=== PATIENT | male | born 1965 | race Caucasian/White ===

== ENCOUNTER 2017-05-24 02:42 | Inpatient (IN) | payer OTHER ==
[~2017-05-24] VITALS: Ht 170.2 cm; Wt 91.2 kg
[~2017-05-24 02:42] MED LIST: ACYC500V PO; ESOM40SU PO; SERT50TA5 PO
[2017-05-24] MEDS ORDERED: MORPHINE SULFATE 4 MG/ML, 1ML ONE ×2 (03:20→05:10)
[2017-05-24] MEDS ORDERED: KETOROLAC 30 MG/1 ML ONE (03:20)
[2017-05-24] MEDS ORDERED: ONDANSETRON 2MG/ML, 2ML ONE ×2 (03:20→05:10)
[2017-05-24] MEDS: MORPHINE SULFATE 4 MG/ML, 1ML IVPush PRN ×2 (03:26→05:13)
[2017-05-24] MEDS ORDERED: SODIUM CHLORIDE 0.9% 1,000ML IVBOLUS ONE (03:30)
[2017-05-24] MEDS ORDERED: KETOROLAC 30 MG/1 ML IVPush ONE (03:30)
[2017-05-24 03:39] LABS: BASOPHILS # (AUTO) 0.05 x10^3/uL (0-0.1); BASOPHILS % (AUTO) 1 % (0-1); EOSINOPHILS # (AUTO) 0.07 x10^3/uL (0-0.4); EOSINOPHILS % (AUTO) 1 % (1-7); LYMPHOCYTES # (AUTO) 1.28 x10^3/uL (1-3.4); LYMPHOCYTES % (AUTO) 13 % (22-44); MD NO; MEAN CORPUSCULAR HGB CONC 33.6 g/dL (33.2-36.2); MEAN CORPUSCULAR VOLUME 86.3 fL (81-97); MEAN PLATELET VOLUME 7.9 fL (7.4-10.4); MONOCYTES # (AUTO) 0.45 x10^3/uL (0.2-0.8); MONOCYTES % (AUTO) 5 % (2-9); NEUTROPHILS # (AUTO) 8.25 x10^3/uL (1.8-6.8); NEUTROPHILS % (AUTO) 82 % (42-75); PLATELET COUNT 287 x10^3/uL (130-400); RED BLOOD COUNT 5.07 x10^6/uL (4.38-5.82); RED CELL DISTRIBUTION WIDTH 13.9 % (9.4-14.8)
[2017-05-24 03:52] LABS: ALANINE AMINOTRANSFERASE 34 U/L (12-78); ALBUMIN 4.5 g/dL (3.4-5.0); ANION GAP 14 mmol/L (5-15); CALCIUM 9.4 mg/dL (8.5-10.1); CHLORIDE 105 mmol/L (98-107); CREATININE 1.57 mg/dL (0.7-1.3)
[2017-05-24 03:54] LABS: ALKALINE PHOSPHATASE 58 U/L (45-117); BILIRUBIN,TOTAL 0.9 mg/dL (0.2-1.0); TOTAL PROTEIN 7.9 g/dL (6.4-8.2)
[2017-05-24] MEDS ORDERED: ONDANSETRON 2MG/ML, 2ML IVPush ONE ×2 (04:00→05:30)
[2017-05-24 06:08] LABS: MICROSCOPIC INDICATED
[2017-05-24 06:14] LABS: INTERNATIONAL NORMALIZED RATIO 0.95 (0.93-1.1); PROTHROMBIN TIME 9.9 Seconds (9.6-11.5)
[2017-05-24 06:17] LABS: CULTURE INDICATED? NO
[2017-05-24] MEDS ORDERED: ONDANSETRON 2MG/ML, 2ML IVPush PRN ×2 (07:00→08:00)
[2017-05-24] MEDS ORDERED: MORPHINE SULFATE 4 MG/ML, 1ML IVPush PRN (07:00)
[2017-05-24] MEDS ORDERED: ENALAPRILAT 1.25 MG/ML, 2ML IVPush PRN (08:00)
[2017-05-24] MEDS ORDERED: ACETAMINOPHEN 325 MG TABLET PO PRN (08:00)
[2017-05-24] MEDS ORDERED: hydrALAzine 20 MG/ML, 1ML IVPush PRN (08:00)
[2017-05-24] MEDS ORDERED: POLYETHYLENE GLYCOL 17 GM PACKET PO PRN (08:00)
[2017-05-24] MEDS ORDERED: DOCUSATE 100 MG CAPSULE PO PRN (08:00)
[2017-05-24] MEDS ORDERED: BISACODYL 10 MG SUPP PR PRN (08:00)
[2017-05-24] MEDS ORDERED: morphine SULFATE 10 MG/ML, 1ML IVPush PRN (08:00)
[2017-05-24] MEDS: ESOMEPRAZOLE MAGNESIUM 40 MG PO SCH (09:00)
[2017-05-24] MEDS ORDERED: SERTRALINE 50MG TABLET PO SCH (09:00)
[2017-05-24 12:54] VITALS: BP 122/67
[2017-05-24] MEDS: HYDROcodone/APAP 5/325 TABLET PO PRN (16:30)
[2017-05-24] MEDS: LACTATED RINGERS 1,000 ML IV SCH (17:22)
[2017-05-24 19:47] VITALS: BP 130/67
[2017-05-24] MEDS: SERTRALINE 50MG TABLET PO SCH (20:17)
[2017-05-25] MEDS: LACTATED RINGERS 1,000 ML IV SCH (00:05)
[2017-05-25 03:25] VITALS: BP 109/60
[2017-05-25 03:36] LABS: ALBUMIN 3.2 g/dL (3.4-5.0); ANION GAP 7 mmol/L (5-15); CALCIUM 8.2 mg/dL (8.5-10.1); CHLORIDE 108 mmol/L (98-107)
[2017-05-25 03:39] LABS: ALANINE AMINOTRANSFERASE 23 U/L (12-78); ALKALINE PHOSPHATASE 42 U/L (45-117); BILIRUBIN,TOTAL 0.7 mg/dL (0.2-1.0); CREATININE 1.46 mg/dL (0.7-1.3); TOTAL PROTEIN 6.3 g/dL (6.4-8.2)
[2017-05-25 07:47] VITALS: BP 131/66
[2017-05-25] MEDS ORDERED: LACTATED RINGERS 1,000 ML IV SCH (08:00)
[2017-05-25] MEDS: ESOMEPRAZOLE MAGNESIUM 40 MG PO SCH (09:00)
[2017-05-25 12:28] LABS: BASOPHILS # (AUTO) 0.08 x10^3/uL (0-0.1); BASOPHILS % (AUTO) 1 % (0-1); EOSINOPHILS # (AUTO) 0.05 x10^3/uL (0-0.4); EOSINOPHILS % (AUTO) 1 % (1-7); LYMPHOCYTES % (AUTO) 17 % (22-44); MD NO; MEAN CORPUSCULAR HEMOGLOBIN 29.8 pg (27.5-34.5); MEAN CORPUSCULAR HGB CONC 34.2 g/dL (33.2-36.2); MEAN CORPUSCULAR VOLUME 87.1 fL (81-97); MEAN PLATELET VOLUME 7.8 fL (7.4-10.4); MONOCYTES # (AUTO) 0.69 x10^3/uL (0.2-0.8); MONOCYTES % (AUTO) 9 % (2-9); NEUTROPHILS # (AUTO) 5.34 x10^3/uL (1.8-6.8); NEUTROPHILS % (AUTO) 72 % (42-75); PLATELET COUNT 203 x10^3/uL (130-400); RED BLOOD COUNT 4.03 x10^6/uL (4.38-5.82); RED CELL DISTRIBUTION WIDTH 13.9 % (9.4-14.8)
[2017-05-25] MEDS: HYDROcodone/APAP 5/325 TABLET PO PRN ×2 (13:39→21:23)
[2017-05-25 15:14] VITALS: BP 110/63
[2017-05-25 19:20] VITALS: BP 129/67
[2017-05-25] MEDS: SERTRALINE 50MG TABLET PO SCH (21:22)
[2017-05-26 02:00] VITALS: BP 112/64
[2017-05-26 04:26] LABS: BASOPHILS # (AUTO) 0.03 x10^3/uL (0-0.1); BASOPHILS % (AUTO) 1 % (0-1); EOSINOPHILS # (AUTO) 0.11 x10^3/uL (0-0.4); EOSINOPHILS % (AUTO) 2 % (1-7); LYMPHOCYTES # (AUTO) 1.74 x10^3/uL (1-3.4); LYMPHOCYTES % (AUTO) 26 % (22-44); MD NO; MEAN CORPUSCULAR HEMOGLOBIN 29.3 pg (27.5-34.5); MEAN CORPUSCULAR HGB CONC 33.8 g/dL (33.2-36.2); MEAN CORPUSCULAR VOLUME 86.6 fL (81-97); MEAN PLATELET VOLUME 7.7 fL (7.4-10.4); MONOCYTES # (AUTO) 0.59 x10^3/uL (0.2-0.8); MONOCYTES % (AUTO) 9 % (2-9); NEUTROPHILS # (AUTO) 4.24 x10^3/uL (1.8-6.8); NEUTROPHILS % (AUTO) 63 % (42-75); PLATELET COUNT 196 x10^3/uL (130-400); RED BLOOD COUNT 3.82 x10^6/uL (4.38-5.82)
[2017-05-26 04:45] LABS: ALBUMIN 3.1 g/dL (3.4-5.0); ANION GAP 6 mmol/L (5-15); CALCIUM 8.4 mg/dL (8.5-10.1); CHLORIDE 109 mmol/L (98-107)
[2017-05-26 04:49] LABS: ALANINE AMINOTRANSFERASE 22 U/L (12-78); ALKALINE PHOSPHATASE 42 U/L (45-117); BILIRUBIN,TOTAL 0.8 mg/dL (0.2-1.0); TOTAL PROTEIN 6.3 g/dL (6.4-8.2)
[2017-05-26] MEDS ORDERED: OMNIPAQUE 350 MG/ML, 100ML BOTTLE ONE (08:15)
[2017-05-26 08:42] VITALS: BP 152/83
[2017-05-26] MEDS: ESOMEPRAZOLE MAGNESIUM 40 MG PO SCH (09:00)
[2017-05-26] MEDS: HYDROcodone/APAP 5/325 TABLET PO PRN (12:06)
[2017-05-26 13:31] VITALS: BP 143/73
[2017-05-26 19:49] VITALS: BP 145/83
[2017-05-26] MEDS: SERTRALINE 50MG TABLET PO SCH (21:34)
[2017-05-27 03:45] VITALS: BP 114/67
[2017-05-27 07:55] VITALS: BP 145/88
[2017-05-27] MEDS: ESOMEPRAZOLE MAGNESIUM 40 MG PO SCH (09:00)
[2017-05-27] MEDS ORDERED: ACET325T14 PO (10:32)
== END 2017-05-27 13:00 | disposition home or self-care (01) | DRG 699 ==
LOC: ED 05:09 → EDIP 06:51 → 3NW 07:41 → DCLOUNGE 05-27 12:49
PROVIDERS: ADMIT Internal Medicine; ATTEND Internal Medicine
DX: S37.012A Minor contusion of left kidney, initial encounter (principal); N17.9 Acute kidney failure, unspecified; F32.9 Major depressive disorder, single episode, unspecified; W18.39XA Other fall on same level, initial encounter; Y93.23 Activity, snow (alpine) (downhill) skiing, snowboarding, sledding, tobogganing and snow tubing; Y92.89 Other specified places as the place of occurrence of the external cause; Y99.8 Other external cause status; F41.9 Anxiety disorder, unspecified; K21.9 Gastro-esophageal reflux disease without esophagitis; Z80.1 Family history of malignant neoplasm of trachea, bronchus and lung; Z82.5 Family history of asthma and other chronic lower respiratory diseases
CPT/HCPCS: 36415; 74174; 74176; 80053; 81001; 83690; 85014; 85018; 85025; 85610; 96361; 96374; 96375; 96376; J1885; J2405; Q9967; J7030; J7120

== ENCOUNTER → 2017-06-11 | Outpatient (CLI) | payer OTHER ==
[~2017-06-11] MED LIST changes: +ACET325T14 PO
[2017-06-11 12:11] LABS: ALANINE AMINOTRANSFERASE 17 U/L (12-78); ALBUMIN 3.8 g/dL (3.4-5.0); ANION GAP 6 mmol/L (5-15); CALCIUM 8.9 mg/dL (8.5-10.1); CHLORIDE 106 mmol/L (98-107)
[2017-06-11 12:13] LABS: ALKALINE PHOSPHATASE 79 U/L (45-117); BILIRUBIN,TOTAL 0.7 mg/dL (0.2-1.0)
== END | disposition home or self-care (01) ==
LOC: LAB 11:29
PROVIDERS: ATTEND Student in an Organized Health Care Education/Training Program
DX: S37.019A Minor contusion of unspecified kidney, initial encounter (principal); X58.XXXA Exposure to other specified factors, initial encounter; Y93.89 Activity, other specified; Y92.89 Other specified places as the place of occurrence of the external cause; Y99.8 Other external cause status
CPT/HCPCS: 36415; 80053

== ENCOUNTER → 2017-06-21 | Outpatient (CLI) | payer OTHER ==
[~2017-06-21] MED LIST changes: +GADOBUTROL 10 MMOL/10 ML VIAL ONE
== END ==
LOC: CFH 09:12
PROVIDERS: ATTEND Student in an Organized Health Care Education/Training Program
DX: S37.012A Minor contusion of left kidney, initial encounter (principal)
CPT/HCPCS: 74183; A9585

== ENCOUNTER → 2018-06-30 | Outpatient (CLI) | payer OTHER ==
[~2018-06-30] MED LIST changes: +FUROSEMIDE 20 MG/2 ML ONE; -GADOBUTROL 10 MMOL/10 ML VIAL ONE; +SERT50TA28 PO; -SERT50TA5 PO
== END | disposition home or self-care (01) ==
LOC: PETCFH 09:13
PROVIDERS: ATTEND Student in an Organized Health Care Education/Training Program
DX: S37.019D Minor contusion of unspecified kidney, subsequent encounter (principal); X58.XXXD Exposure to other specified factors, subsequent encounter
CPT/HCPCS: 78708; A9562; J1940

== ENCOUNTER 2020-06-23 14:21 | Inpatient (IN) | payer OTHER ==
[~2020-06-23] VITALS: Ht 170.2 cm; Wt 90.3 kg
[~2020-06-23 14:21] MED LIST changes: -FUROSEMIDE 20 MG/2 ML ONE
[2020-06-23] MEDS ORDERED: SERT-238 PO (14:34)
[2020-06-23] MEDS ORDERED: OMEP20CA20 PO (14:34)
--- NOTE | 2020-06-23 14:34 | NUR ---
DR MUÑOZ BS FOR EXAM. PT ABLE TO SPEAK IN COMPLETE SENTENCES.
--- NOTE | 2020-06-23 14:41 | NUR ---
O2 SAT DECREASED TO 88% AFTER WALKING AROUND [employer]. O2 APPLIED AT 2LNC; WILL TITRATE PRN.
[2020-06-23] MEDS ORDERED: DEXAMETHASONE 4 MG/ML, 5ML ONE (14:47)
[2020-06-23] MEDS ORDERED: DEXAMETHASONE 4 MG/ML, 1ML IV ONE (15:00)
--- NOTE | 2020-06-23 15:10 | NUR ---
report from skylar juarez
--- NOTE | 2020-06-23 15:10 | NUR ---
PT REPORT TO LILY LANDIN. PT CARE TRANSFERRED.
--- NOTE | 2020-06-23 15:18 | NUR ---
DECADRON 10MG DOSE CONFIRMED W/ LAW; MEDICATION GIVEN. IV SITE PATENT. SIDE RAIL UP X1, CALL LIGHT W/IN REACH.
[2020-06-23 15:21] LABS: PLATELET (DIC) 208 x10^3/uL (130-400)
[2020-06-23 15:23] LABS: BASOPHILS % (AUTO) 0 % (0-1); EOSINOPHILS % (AUTO) 0 % (1-7); LYMPHOCYTES % (AUTO) 11 % (22-44); MEAN CORPUSCULAR HEMOGLOBIN 29.1 pg (27.5-34.5); MEAN CORPUSCULAR HGB CONC 34.4 g/dL (33.2-36.2); MONOCYTES % (AUTO) 8 % (2-9); NEUTROPHILS % (AUTO) 81 % (42-75); PLATELET COUNT 219 x10^3/uL (130-400); RED BLOOD COUNT 5.17 x10^6/uL (4.38-5.82); RED CELL DISTRIBUTION WIDTH 13.2 % (9.4-14.8)
[2020-06-23 15:29] LABS: MD NO
[2020-06-23] MEDS ORDERED: CEFTRIAXONE PMX 1GM/50ML 50 ML IVPB ONE (15:30)
[2020-06-23] MEDS ORDERED: DOXYCYCLINE 100MG TABLET PO ONE (15:30)
[2020-06-23 15:33] LABS: ALANINE AMINOTRANSFERASE 59 U/L (12-78); ALBUMIN 3.3 g/dL (3.4-5.0); ANION GAP 6 mmol/L (5-15); CALCIUM 8.4 mg/dL (8.5-10.1); CHLORIDE 99 mmol/L (98-107); CREATININE 1.09 mg/dL (0.7-1.3)
[2020-06-23] MEDS ORDERED: DOXYCYCLINE 100MG TABLET ONE (15:37)
[2020-06-23] MEDS ORDERED: CEFTRIAXONE PMX 1GM/50ML 50 ML ONE (15:37)
[2020-06-23 15:40] LABS: ALKALINE PHOSPHATASE 77 U/L (45-117); BILIRUBIN,TOTAL 0.6 mg/dL (0.2-1.0); D-DIMER (DIC) 0.47 ug/mlFEU (0.00-0.52); PROTIME 11.2 Seconds (9.6-11.5); PTT 37 Seconds (25-31); TOTAL PROTEIN 7.8 g/dL (6.4-8.2)
[2020-06-23 15:41] LABS: FIBRINOGEN > 713 mg/dL (200-340)
--- NOTE | 2020-06-23 16:49 | NUR ---
report given to linda juarez
[2020-06-23] MEDS ORDERED: ONDANSETRON 2MG/ML, 2ML IVPush PRN (17:00)
[2020-06-23] MEDS ORDERED: hydrALAzine 20 MG/ML, 1ML IVPush PRN (17:00)
[2020-06-23] MEDS ORDERED: ENALAPRILAT 1.25 MG/ML, 2ML IVPush PRN (17:00)
[2020-06-23] MEDS ORDERED: BACLOFEN 10 MG TABLET PO PRN (17:00)
[2020-06-23] MEDS ORDERED: GUAIFENESIN/DM 200-20MG, 10ML UDC PO PRN (17:00)
[2020-06-23] MEDS ORDERED: ENOXAPARIN 40 MG/0.4 ML SQ SCH (17:00)
[2020-06-23] MEDS ORDERED: POTASSIUM CHLORIDE 20 MEQ, MAGNESIUM SULFATE 2 GM, THIAMINE 200 MG, MVI ADULT 10 ML, FO... IV ONE (17:00)
[2020-06-23] MEDS ORDERED: KETOROLAC 30 MG/1 ML IV PRN (17:00)
[2020-06-23] MEDS ORDERED: ACETAMINOPHEN 325 MG TABLET PO PRN (17:00)
[2020-06-23] MEDS ORDERED: BUTALB/APAP/CAFFEINE 50MG/325MG/40MG PO PRN ×2 (17:00)
[2020-06-23] MEDS ORDERED: ONDANSETRON ODT 4 MG PO PRN (17:00)
[2020-06-23 17:27] VITALS: BP 120/75
[2020-06-23] MEDS: IVERMECTIN 3 MG TAB PO SCH (17:47)
[2020-06-23 17:53] VITALS: BP 120/75
[2020-06-23] MEDS ORDERED: POTASSIUM CHLORIDE 20 MEQ, MAGNESIUM SULFATE 2 GM, THIAMINE 200 MG, FOLIC ACID 1 MG in ... IV ONE (18:00)
[2020-06-23] MEDS: ASCORBIC ACID 500 MG TABLET PO SCH (18:32)
[2020-06-23 18:56] VITALS: BP 125/76
[2020-06-23] MEDS: methylPREDNISolone SOD SUCC 125 MG/2 ML IV SCH (20:26)
[2020-06-23] MEDS: MELATONIN 5 MG TABLET PO SCH (20:26)
[2020-06-24 00:12] VITALS: BP 132/72
[2020-06-24 05:51] LABS: BASOPHILS % (AUTO) 0 % (0-1); EOSINOPHILS % (AUTO) 0 % (1-7); LYMPHOCYTES % (AUTO) 11 % (22-44); MEAN CORPUSCULAR HEMOGLOBIN 29.1 pg (27.5-34.5); MEAN CORPUSCULAR HGB CONC 34.5 g/dL (33.2-36.2); MEAN PLATELET VOLUME 7.1 fL (7.4-10.4); MONOCYTES % (AUTO) 6 % (2-9); NEUTROPHILS % (AUTO) 82 % (42-75); PLATELET COUNT 238 x10^3/uL (130-400)
[2020-06-24 05:54] LABS: MD NO
[2020-06-24] MEDS: ENOXAPARIN 40 MG/0.4 ML SQ SCH (05:55)
[2020-06-24 06:03] LABS: ANION GAP 6 mmol/L (5-15); CALCIUM 8.5 mg/dL (8.5-10.1); CHLORIDE 106 mmol/L (98-107); CREATININE 0.89 mg/dL (0.7-1.3)
[2020-06-24 08:05] VITALS: BP 118/77
[2020-06-24] MEDS: ASCORBIC ACID 500 MG TABLET PO SCH ×2 (08:08→17:14)
[2020-06-24] MEDS: MULTIVITS,STRESS FORMULA 1 TABLET PO SCH (08:09)
[2020-06-24] MEDS: OMEPRAZOLE 20 MG CAPSULE.DR PO SCH (08:09)
[2020-06-24] MEDS: CHOLECALCIFEROL 5,000u TAB PO SCH (08:09)
[2020-06-24] MEDS: ZINC SULFATE 220 MG CAPSULE PO SCH (08:09)
[2020-06-24] MEDS: SENNA/DOCUSATE TABLET PO SCH (08:10)
[2020-06-24] MEDS: methylPREDNISolone SOD SUCC 125 MG/2 ML IV SCH ×2 (08:10→20:33)
[2020-06-24] MEDS: FLUTICASONE/VILANTEROL 100-25MCG/INH INH SCH (11:00)
[2020-06-24 13:18] VITALS: BP 117/79
[2020-06-24] MEDS: IVERMECTIN 3 MG TAB PO SCH (17:15)
[2020-06-24 18:55] VITALS: BP 119/77
[2020-06-24] MEDS: SERTRALINE 100MG TABLET PO SCH (20:33)
[2020-06-24] MEDS: MELATONIN 5 MG TABLET PO SCH (20:33)
[2020-06-25 00:27] VITALS: BP 120/75
[2020-06-25] MEDS: ENOXAPARIN 40 MG/0.4 ML SQ SCH (05:55)
[2020-06-25 07:37] VITALS: BP 122/70
[2020-06-25] MEDS: ASCORBIC ACID 500 MG TABLET PO SCH ×2 (07:54→16:28)
[2020-06-25] MEDS: SERTRALINE 100MG TABLET PO SCH ×2 (07:54→07:57)
[2020-06-25] MEDS: ZINC SULFATE 220 MG CAPSULE PO SCH (07:54)
[2020-06-25] MEDS: CHOLECALCIFEROL 5,000u TAB PO SCH (07:55)
[2020-06-25] MEDS: methylPREDNISolone SOD SUCC 125 MG/2 ML IV SCH ×2 (07:55→20:32)
[2020-06-25] MEDS: MULTIVITS,STRESS FORMULA 1 TABLET PO SCH (07:55)
[2020-06-25] MEDS: OMEPRAZOLE 20 MG CAPSULE.DR PO SCH (07:55)
[2020-06-25] MEDS: SENNA/DOCUSATE TABLET PO SCH (07:57)
[2020-06-25] MEDS: FLUTICASONE/VILANTEROL 100-25MCG/INH INH SCH (08:00)
[2020-06-25 12:45] VITALS: BP 110/75
[2020-06-25] MEDS: IVERMECTIN 3 MG TAB PO SCH (16:28)
[2020-06-25 18:45] VITALS: BP 138/74
[2020-06-25] MEDS: MELATONIN 5 MG TABLET PO SCH (20:32)
[2020-06-26 00:22] VITALS: BP 113/70
[2020-06-26] MEDS: ENOXAPARIN 40 MG/0.4 ML SQ SCH (05:51)
[2020-06-26] MEDS: SERTRALINE 100MG TABLET PO SCH (07:44)
[2020-06-26] MEDS: ASCORBIC ACID 500 MG TABLET PO SCH (07:44)
[2020-06-26] MEDS: SENNA/DOCUSATE TABLET PO SCH (07:44)
[2020-06-26] MEDS: CHOLECALCIFEROL 5,000u TAB PO SCH (07:44)
[2020-06-26] MEDS: OMEPRAZOLE 20 MG CAPSULE.DR PO SCH (07:44)
[2020-06-26] MEDS: MULTIVITS,STRESS FORMULA 1 TABLET PO SCH (07:44)
[2020-06-26] MEDS: ZINC SULFATE 220 MG CAPSULE PO SCH (07:44)
[2020-06-26] MEDS: methylPREDNISolone SOD SUCC 125 MG/2 ML IV SCH (07:44)
[2020-06-26 07:49] VITALS: BP 113/73
[2020-06-26] MEDS ORDERED: ZINC220C8 PO (09:18)
[2020-06-26] MEDS ORDERED: CHOL500045 PO (09:18)
[2020-06-26] MEDS ORDERED: FLUT1AER INH (09:18)
[2020-06-26] MEDS ORDERED: ASCO500T9 PO (09:18)
[2020-06-26] MEDS ORDERED: MELA5TAB14 PO (09:18)
[2020-06-26] MEDS ORDERED: IVER3TAB2 PO (09:18)
[2020-06-26] MEDS: FLUTICASONE/VILANTEROL 100-25MCG/INH INH SCH (09:30)
[2020-06-26 14:15] VITALS: BP 115/70
== END 2020-06-26 16:13 | disposition home or self-care (01) | DRG 177 ==
LOC: ED 17:04 → EDIP 17:19 → 3N 17:21
PROVIDERS: ADMIT Hospitalist; ATTEND Hospitalist
DX: U07.1 COVID-19 (principal); J12.82 Pneumonia due to coronavirus disease 2019; J96.01 Acute respiratory failure with hypoxia; E87.1 Hypo-osmolality and hyponatremia; F41.9 Anxiety disorder, unspecified; K21.9 Gastro-esophageal reflux disease without esophagitis; E87.6 Hypokalemia; R73.9 Hyperglycemia, unspecified; T38.0X5A Adverse effect of glucocorticoids and synthetic analogues, initial encounter; Y92.89 Other specified places as the place of occurrence of the external cause; Z79.899 Other long term (current) drug therapy
CPT/HCPCS: 36415; 71045; 80048; 80053; 82728; 83036; 83605; 83615; 83735; 84145; 85025; 85049; 85379; 85384; 85610; 85730; 86140; 87040; 93005; 94640; 96374; G0378; J0696; J1100; J1650; J3411; J3475; J3480; J7042; J2930